=== PATIENT | female | born 1990 | race Caucasian/White ===

== ENCOUNTER 2018-07-23 00:40 | Emergency (ER) | payer MEDICAID ==
[~2018-07-23] VITALS: Ht 157.5 cm; Wt 46.6 kg
[~2018-07-23 00:40] MED LIST: DOXY-8 PO; NO HOME MEDS
[2018-07-23 01:18] LABS: BASOPHILS % (AUTO) 0.4 % (0-1); EOSINOPHILS # (AUTO) 0.1 X10'3 (0-0.9); EOSINOPHILS % (AUTO) 1.7 % (0-6); HEMATOCRIT 44.5 % (35.0-45.0); HEMOGLOBIN 14.9 g/dl (12.0-16.0); LYMPHOCYTES # (AUTO) 1.1 X10'3 (1.1-4.8); MEAN CORPUSCULAR HEMOGLOBIN 30.3 PG (27.0-31.0); MEAN CORPUSCULAR HGB CONC 33.5 g/dL (33.0-36.5); MEAN CORPUSCULAR VOLUME 90.5 FL (78-98); MEAN PLATELET VOLUME 7.6 FL (7.4-10.4); MONOCYTES % (AUTO) 13.9 % (2-12); NEUTROPHILS # (AUTO) 5.1 X10'3 (1.8-7.7); PLATELET COUNT 371 X10'3 (140-440); RED BLOOD COUNT 4.91 X10'6 (4.20-5.60); RED CELL DISTRIBUTION WIDTH 13.3 % (11.5-14.5); WHITE BLOOD COUNT 7.4 X10'3 (4.5-11.0)
[2018-07-23] MEDS ORDERED: ondansetron/PF 4mg/2ml inj IV ONE (01:20)
[2018-07-23] MEDS ORDERED: normal saline 1000ML IV soln IVB ONE (01:20)
[2018-07-23 01:32] LABS: ALANINE AMINOTRANSFERASE 20 U/L (12-78); ALBUMIN 3.4 G/DL (3.4-5.0); ALKALINE PHOSPHATASE 72 IU/L (46-116); ANION GAP 5 (8-16); ASPARTATE AMINO TRANSFERASE 19 U/L (10-37); BILIRUBIN,TOTAL 0.4 MG/DL (0.1-1.0); BLOOD UREA NITROGEN 9 MG/DL (7-18); BUN/CREATININE RATIO 12.9 (6.6-38.0); CALCIUM 8.8 MG/DL (8.5-10.1); CHLORIDE 104 MMOL/L (99-107); GLUCOSE 60 MG/DL (70-104); LIPASE < 50 U/L (73-393); POTASSIUM 3.4 MMOL/L (3.5-5.1); SODIUM 138 MMOL/L (135-145); TOTAL CARBON DIOXIDE 29.2 MMOL/L (24-32); TOTAL PROTEIN 6.8 G/DL (6.4-8.2); eGFR > 90 ML/MIN
[2018-07-23 01:50] LABS: BETA HCG,QUANTITATIVE < 1.0 mIU/ml
[2018-07-23 02:45] LABS: CLARITY,URINE CLEAR (Clear); COLOR,URINE YELLOW (Yellow); GLUCOSE, URINE NEGATIVE (Neg); KETONES,URINE NEGATIVE (Neg); LEUKOCYTE ESTERASE ,URINE SMALL (Neg); NITRITES, URINE NEGATIVE (Neg); OCCULT BLOOD,URINE TRACE-INTACT (Neg); PROTEIN,URINE NEGATIVE (Neg); UROBILINOGEN,URINE 0.2 E.U/dL (0.2-1.0)
[2018-07-23 02:49] LABS: UA COLLECTION TYPE CLN CATCH MIDSTREAM
[2018-07-23 02:52] LABS: BACTERIA,URINE 1+ /HPF (Neg); RBC,URINE 0-2 /HPF (0-2)
[2018-07-23 02:53] LABS: MUCUS STRANDS MANY /LPF (Neg); SQUAMOUS EPITHELIAL CELL,UR MANY /LPF (FEW)
[2018-07-23 02:59] LABS: URINE AMPHETAMINE SCREEN POSITIVE (Neg); URINE BARBITUATE SCREEN NEGATIVE (Neg); URINE BENZODIAZEPINES SCREEN NEGATIVE (Neg); URINE CANNABINOID SCREEN NEGATIVE (Neg); URINE COCAINE SCREEN NEGATIVE (Neg); URINE METHADONE SCREEN NEGATIVE (Neg); URINE OPIATE SCREEN NEGATIVE (Neg); URINE PHENCYCLIDINE SCREEN NEGATIVE (Neg)
[2018-07-23] MEDS ORDERED: ONDA4TAB6 PO ×2 (03:18→04:42)
[2018-07-23] MEDS ORDERED: METR500T PO (04:42)
[2018-07-23] MEDS ORDERED: CIPR-259 PO (04:42)
[2018-07-23 04:54] VITALS: BP 147/80
== END 2018-07-23 04:57 | disposition home or self-care (01) ==
LOC: ER 00:40
DX: K52.9 Noninfective gastroenteritis and colitis, unspecified (principal); K29.70 Gastritis, unspecified, without bleeding; F15.90 Other stimulant use, unspecified, uncomplicated; R10.84 Generalized abdominal pain; J45.909 Unspecified asthma, uncomplicated; Z98.890 Other specified postprocedural states
CPT/HCPCS: 36415; 74176; 80053; 80305; 81001; 83690; 84702; 85025; 96360; 96361; 99284; J7030

== ENCOUNTER 2022-07-18 13:08 | Emergency (ER) | payer MEDICAID ==
[~2022-07-18] VITALS: Ht 157.5 cm; Wt 69.2 kg
[~2022-07-18 13:08] MED LIST changes: +ONDA4TAB6 PO
[2022-07-18 13:26] VITALS: BP 152/89
[2022-07-18] MEDS ORDERED: RISP3TAB11 PO (15:57)
[2022-07-18] MEDS ORDERED: risperiDONE 2mg tablet PO ONE (16:00)
== END 2022-07-18 16:13 | disposition home or self-care (01) ==
LOC: ER 13:09
DX: F31.9 Bipolar disorder, unspecified (principal); J45.909 Unspecified asthma, uncomplicated; Z76.0 Encounter for issue of repeat prescription; F17.200 Nicotine dependence, unspecified, uncomplicated; Z72.89 Other problems related to lifestyle; Z79.899 Other long term (current) drug therapy
CPT/HCPCS: 99283

== ENCOUNTER 2022-10-18 11:41 | Emergency (ER) | payer MEDICAID ==
[~2022-10-18] VITALS: Ht 157.5 cm; Wt 72.7 kg
[~2022-10-18 11:41] MED LIST changes: +RISP3TAB11 PO
[2022-10-18 12:11] VITALS: BP 129/84; PULSE 87; RESP 18; TEMP 98.8; O2SAT 97
[2022-10-18] MEDS ORDERED: AMOX500C2 PO (13:02)
== END 2022-10-18 13:14 | disposition home or self-care (01) ==
LOC: ER 11:42
DX: K04.7 Periapical abscess without sinus (principal); F31.9 Bipolar disorder, unspecified; J45.909 Unspecified asthma, uncomplicated; Z79.2 Long term (current) use of antibiotics; Z79.899 Other long term (current) drug therapy
CPT/HCPCS: 99283

== ENCOUNTER 2024-06-24 04:00 | Emergency (ER) | payer MEDICAID ==
[~2024-06-24] VITALS: Ht 162.6 cm; Wt 50.0 kg
[2024-06-24 04:03] VITALS: TEMP 98
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
[2024-06-24 04:48] LABS: BASOPHILS % (AUTO) 0.3 % (0-1); EOSINOPHILS % (AUTO) 0.1 % (0-6); HEMOGLOBIN 12.2 g/dl (12.0-16.0); LYMPHOCYTES # (AUTO) 0.6 X10'3 (1.1-4.8); LYMPHOCYTES % (AUTO) 3.4 % (21-51); MEAN CORPUSCULAR HEMOGLOBIN 28.1 PG (27.0-31.0); MEAN CORPUSCULAR HGB CONC 32.1 g/dL (33.0-36.5); MEAN CORPUSCULAR VOLUME 87.4 FL (78-98); MEAN PLATELET VOLUME 7.1 FL (7.4-10.4); MONOCYTES # (AUTO) 1.4 X10'3 (0-0.9); MONOCYTES % (AUTO) 8.2 % (2-12); NEUTROPHILS # (AUTO) 15.2 X10'3 (1.8-7.7); PLATELET COUNT 364 X10'3 (140-440); RED BLOOD COUNT 4.35 X10'6 (4.20-5.60); RED CELL DISTRIBUTION WIDTH 15.2 % (11.5-14.5); WHITE BLOOD COUNT 17.2 X10'3 (4.5-11.0)
[2024-06-24 05:10] LABS: APTT 20 SECONDS (22-32); INR 1.1 INR; PROTHROMBIN TIME 10.9 SECONDS (9.0-12.0)
[2024-06-24 05:27] LABS: ALANINE AMINOTRANSFERASE 22 U/L (12-78); ALBUMIN/GLOBULIN RATIO 1.3 (1.1-1.5); ALKALINE PHOSPHATASE 69 IU/L (46-116); ANION GAP 10 (8-16); BILIRUBIN,TOTAL 0.2 MG/DL (0.1-1.0); BLOOD UREA NITROGEN 13 MG/DL (7-18); BUN/CREATININE RATIO 18.1 (10.0-20.0); CALCIUM 8.8 MG/DL (8.5-10.1); CHLORIDE 103 MMOL/L (99-107); CREATININE 0.72 MG/DL (0.40-0.90); GLUCOSE 64 MG/DL (70-104); SODIUM 141 MMOL/L (135-145); TOTAL CARBON DIOXIDE 28.2 MMOL/L (24-32); TOTAL PROTEIN 7.2 G/DL (6.4-8.2); eCRCL 86 ML/MIN; eGFR > 90 ML/MIN
[2024-06-24 05:33] LABS: ETHANOL < 10 MG/DL (<10)
[2024-06-24 05:36] LABS: ASPARTATE AMINO TRANSFERASE 22 U/L (10-37); BETA HCG,QUANTITATIVE < 1.0 mIU/ml; CREATINE KINASE 220 U/L (26-192); POTASSIUM 4.4 MMOL/L (3.5-5.1)
[2024-06-24] MEDS: normal saline 1000ml 1,000 ML IV ONE (05:44)
[2024-06-24 06:49] LABS: BILIRUBIN,URINE NEGATIVE (Neg); CLARITY,URINE CLEAR (Clear); COLOR,URINE YELLOW (Yellow); GLUCOSE, URINE 500 mg/dl (Neg); KETONES,URINE NEGATIVE (Neg); LEUKOCYTE ESTERASE ,URINE NEGATIVE (Neg); NITRITES, URINE NEGATIVE (Neg); OCCULT BLOOD,URINE NEGATIVE (Neg); PROTEIN,URINE NEGATIVE (Neg); UROBILINOGEN,URINE 0.2 E.U/dL (0.2-1.0)
--- NOTE | 2024-06-24 06:57 | ELECTROCARDIOGRAPH REPORT ---
[facility] Test Date: 2024-06-24 Test Time: 04:07:54 Pat Name: MARLENI RENEE Department: EMERGENCY ROOM [id number] Room: Gender: F Recruit Instructor: SHEILA : 1990 Requested By: MICHELLE DICKERSON Order Number: [id number] Reading MD: Dr. Branden Terry Measurements Intervals Driscoll Rate: 80 P: 59 LA: 157 QRS: 46 QRSD: 87 T: 58 QT: 390 QTc: 450 Interpretive Statements Sinus rhythm Electronically Signed On 06-24-2024 17:20:[address] Branden Terry Please click the below link to view image of tracing.
[2024-06-24 06:58] LABS: UA COLLECTION TYPE NON-SPECIFIED
[2024-06-24 07:03] LABS: URINE AMPHETAMINE SCREEN POSITIVE (Neg); URINE BARBITUATE SCREEN NEGATIVE (Neg); URINE BENZODIAZEPINES SCREEN POSITIVE (Neg); URINE CANNABINOID SCREEN NEGATIVE (Neg); URINE COCAINE SCREEN NEGATIVE (Neg); URINE METHADONE SCREEN NEGATIVE (Neg); URINE OPIATE SCREEN NEGATIVE (Neg); URINE PHENCYCLIDINE SCREEN NEGATIVE (Neg)
[2024-06-24] MEDS: ondansetron/PF 4mg/2ml inj IV ONE (07:43)
[2024-06-24 07:57] VITALS: BP 99/69; PULSE 83; RESP 18; O2SAT 100
== END 2024-06-24 10:37 | disposition left against medical advice (07) ==
LOC: ER 04:01
DX: R40.4 Transient alteration of awareness (principal); T40.415A Adverse effect of fentanyl or fentanyl analogs, initial encounter; J45.909 Unspecified asthma, uncomplicated; F15.10 Other stimulant abuse, uncomplicated; F31.9 Bipolar disorder, unspecified; Z79.899 Other long term (current) drug therapy; Z72.89 Other problems related to lifestyle; Y92.89 Other specified places as the place of occurrence of the external cause
CPT/HCPCS: 36415; 80053; 80305; 80320; 81003; 82550; 83735; 84702; 85025; 85610; 85730; 93005; 96361; 96374; 99284; J2405; J7030

== ENCOUNTER 2024-12-04 14:22 | Emergency (ER) | payer MEDICAID ==
[~2024-12-04] VITALS: Ht 157.5 cm; Wt 64.5 kg
--- NOTE | 2024-12-04 15:00 | Physician Documentation ---
History of Present Illness ~ Chief Complaint: Mouth Pain Stated Complaint: TOOTH PAIN Time Seen by MD: 14:54 Primary Medical Doctor: dash lyons Source: patient Mode of Arrival: POV Exam Limitations: no limitations HPI 34-year-old female with dental pain and abscess that is started yesterday. Patient states the dental pain to her front tooth was approximately 2 days ago. Patient has been taking Tylenol does not have a dental appointment. Patient denies fever difficulty breathing or swallowing. Medication Reconciliation Allergies: Coded Allergies: No Known Allergies (Unverified , 12/04/24) Scheduled Amoxicillin Trihydrate (Amoxicillin), 1 CAP PO Q8H Doxycycline Hyclate* (Vibramycin*), 100 MG PO Q12H Ibuprofen (Ibu), 1 TAB PO Q8H Risperidone (Risperdal), 1 TAB PO HS Scheduled PRN Ondansetron Hcl (Zofran), 1 TAB PO Q6H PRN for nausea/vomiting Ondansetron Hcl (Zofran), 1 TAB PO Q6H PRN for nausea/vomiting Miscellaneous Medications Home Med List (No Home Medications), (Reported) [None], (Reported) Past Medical History Past Medical History: Asthma, Bipolar Past Surgical History: abdominal surgery, other Other Past Surgical History: gastroschisis surgery Other Past Family History: NONCONTRIBUTORY Alcohol Use: Occasionally Drug Use: none Lives with: Family Lives In: Home Review of Systems All Other Systems at this time: Reviewed and Negative ENT: Reports: see HPI Physical Exam Vital Signs: RN Vital Signs have been reviewed: Yes, Temperature: 98.0, Source: Temporal, Heart Rate: 62, Respiratory Rate: 18, BP: 117/71, Pulse Oximetry: 97, Weight: 64.500 Oxygen Flow Rate: 0 Physical Exam General: Alert, no apparent distress. HEENT: moist mucous membranes. Small pea size abscess to the guideline between tooth 9 and 10. Tooth 9 slightly brown and discolored poor dentition Neck: Full range of motion. Respiratory: No respiratory distress speaking in full sentences Chest: No accessory muscle use. Cardiovascular: Appears well perfused Neurologic: Oriented x4. Psychiatric: Normal mood and affect. Skin: Normal color, warm and dry. No edema, no ecchymosis. Procedures I&D Procedure : Site: Dental abscess between 9 and 10 Anesthesia: Lidocaine Volume Anesthetic (mls): 1 Blade Size: 11 Prep/Supplies: irrigated Incision: pus drained, blood drained Tolerated Procedure Well?: yes, no complications Progress Results/Orders Results/Orders Orders - GLENDY KRISHNAN NP Laceration/I&D Tray Set Up (12/04/24 15:05) Completed Orders - GLENDY KRISHNAN NP Bupivacaine 2.5mg/Ml /Pf (Sensorcaine 0. (12/04/24 15:05) Vital Signs 12/04/24 14:41 Temp 98.0 Pulse 62 Resp 18 B/P (MAP) 117/71 Pulse Ox 97 O2 Flow Rate 0 Medical Decision Making Additional information obtaine: N/A Findings Obvious small abscess as well as dental infection tender to tap tooth 9 and 10. No trismus. Patient will have I and D of abscess and be started on antibiotics. Stressed the importance to patient for dental to evaluate further Ear Diff. Dx: Considerations: Unlikely: Abrasion, Cerumen impaction, Foreign body, Otitis externa, Barotrauma, Otitis media, Perforation, Referred pain- dental, Referred pain-pharyngitis, Referred pain-sinusitis, Referred pain-TMJ syn., Tympanic Membrane Injury, Other Eye Diff. Dx: Considerations: Unlikely: Chalazoin, Conjuctivits-allergic, Conjuctivitis-bacterial, Conjuctivits-chlamydial, Conjuctivitis-viral, Corneal abrasion, Corneal laceration, Corneal ulceration, Foreign body-conjuctiva, Foreign body-corneal, Foreign body-intraocular, Foreign body-lid, Glaucoma, Globe rupture, Hordeolum, Iritis, Orbital cellulitis, Periobital cellulitis, Retinal artery occulsion, Retinal vein occlusion, Rust ring, Subconjunctival hem, Ultraviolet keratitis, Uveitis, Vitreous hemorrhage, Other Nose Diff. Dx: Considerations: Unlikely: Abrasion, Anterior nasal bleed, Avulsion, Contusion, Coagulopathy, Fracture-nasal bone, Fracture-septum, Hype rtension, Laceration, Other, Posterior nasal bleed, Retained foreign body, Septal hematoma Tooth Diff. Dx: Considerations: Include: Facial cellulitis, Periodontal abscess, Other Throat Diff Dx: Considerations: Include: Other Departure Time of Disposition: 15:42 Disposition: 01 HOME / SELF CARE / HOMELESS Impression: Primary Impression: Dental abscess Condition: Stable Discharge Instructions: Dental Abscess Additional Instructions: Take ibuprofen and antibiotics as prescribed. Call dental on Friday for appointment to evaluate further. Referrals: NO PRIMARY CARE PROVIDER (PCP) Prescriptions Ibuprofen (Ibu) 800 Mg Tablet 1 TAB PO Q8H for 7 Days, #21 TAB 0 Refills Prov: GLENDY KRISHNAN NP 12/04/24 Amoxicillin Trihydrate (Amoxicillin) 500 Mg Capsule 1 CAP PO Q8H for 10 Days, #30 CAP Prov: GLENDY KRISHNAN NP 12/04/24 Education Educated: Patient Educated regarding: diagnosis, treatment, need for follow up Signature Scribe Signature: No scribe Attestation: The note accurately reflects work and decisions made by me.Glendy Krishnan - CHHA 12/04/24 15:02 GLENDY KRISHNAN NP Dec 04, 2024 15:00
[2024-12-04] MEDS ORDERED: IBUP-864 PO (15:01)
[2024-12-04] MEDS ORDERED: AMOX-100 PO (15:01)
[2024-12-04] MEDS ORDERED: BUPIVAcaine/PF 2.5 mg/ml (0.25%) 30ml vial IJ ONE (15:05)
[2024-12-04 15:52] VITALS: BP 132/86; PULSE 70; RESP 16; TEMP 98; O2SAT 99
== END 2024-12-04 15:54 | disposition home or self-care (01) ==
LOC: ER 14:22
DX: K04.7 Periapical abscess without sinus (principal); J45.909 Unspecified asthma, uncomplicated; F31.9 Bipolar disorder, unspecified
CPT/HCPCS: 41800; 99284; A6449